=== PATIENT | female | born 1945 | race Caucasian/White ===

== ENCOUNTER → 2016-03-30 | Outpatient (CLI) | payer MEDICARE, BC ==
--- NOTE | 2016-03-30 16:46 | REPMRS ---
Patient History The patient states she had a clinical breast exam in 10/2015. Patient is postmenopausal. No known family history of cancer. Taking unspecified hormones for 16 years. Digital Woman Screen Mammo: March 30, 2016 - Exam #: [id number] Bilateral CC and MLO view(s) were taken. Technologist: Pilar Escobar, Technologist Prior study comparison: November 30, 2014, digital woman screen mammo performed at [facility]. April 08, 2013, digital woman screen mammo performed at [facility]. November 22, 2011, digital woman screen mammo performed at [facility]. FINDINGS: There are scattered fibroglandular densities. There has been no change in the appearance of the mammogram from the prior studies. There is a mild amount of scattered fibroglandular density which is fairly symmetric. There is no interval development of dominant mass, architectural distortion, or clustered microcalcification suggestive of malignancy. ASSESSMENT: BI-RADS/ACR category 1 mammogram. Negative. Recommendation Routine screening mammogram in 1 year (for women over age 40). This mammogram was interpreted with the aid of an FDA-approved computer-aided dectection system. Electronically Signed By: Abhinav Bee MD 03/30/16 2055
--- NOTE | 2016-04-04 09:01 | DEXA ---
AP SPINE L1 - L4 1.051 -1.1 0.5 LT FEMUR TOTAL 1.020 0.1 1.6 RT FEMUR TOTAL 1.028 0.2 1.7 TOTAL BODY TOTAL OTHER DUAL FEMUR FRAX* ASSESSMENT Risk factors: None. 10 year probability of fracture Major osteoporotic fracture 9.3 % Hip fracture 1.1 % COMMENTS: Normal bone densitometry of the hips. There is low bone density of the spine. The density of the spine has increased 18.9% since the initial exam on 09/1998. The spine density has increased 1.7% since the most recent exam on 11/2011. The density of the left hip has increased 4.2% since the initial exam on 09/1998. The density of the left hip has decreased 0.7% since the most recent exam on 2011. The density of the right hip has increased 7.8% since the initial exam on 1998. The density of the right hip has increased 0.9% since the most recent exam on 2011. FOLLOW-UP: Recommendation for the next bone density exam: 2 years. VIOLETA
== END ==
LOC: M WHC 15:35
PROVIDERS: ATTEND Nurse Practitioner
DX: Z12.31 Encounter for screening mammogram for malignant neoplasm of breast (principal); Z79.899 Other long term (current) drug therapy; Z13.820 Encounter for screening for osteoporosis; M81.0 Age-related osteoporosis without current pathological fracture; Z82.62 Family history of osteoporosis
CPT/HCPCS: 77080; G0202

== ENCOUNTER → 2016-05-24 | Outpatient (REF) | payer MEDICARE, OTHER ==
[2016-05-24 18:14] LABS: BASO % 0.8 % (0.0-1.0); EOS # 0.2 K/mm3 (0.0-0.50); EOS % 4.1 % (0.0-3.0); LARGE UNSTAINED CELL # 0.1 K/mm3 (0.0-0.4); LARGE UNSTAINED CELL % 0.9 % (0.0-4.0); LYMPH # 1.4 K/mm3 (1.5-4.5); LYMPH % 26.2 % (24.0-44.0); MEAN CORPUSCULAR HEMOGLOBIN 33.3 pg (27.0-33.0); MEAN CORPUSCULAR HGB CONC 34.6 g/dl (32.0-36.5); MEAN CORPUSCULAR VOLUME 96.1 fl (80.0-96.0); MONO # 0.4 K/mm3 (0.0-0.8); MONO % 7.2 % (0.0-5.0); NEUTROPHILS # 3.1 K/mm3 (1.8-7.7); NEUTROPHILS % 60.8 % (36.0-66.0); PLATELET COUNT, AUTOMATED 264 k/mm3 (150-450); RED CELL DISTRIBUTION WIDTH 12.7 % (11.5-14.5); WHITE BLOOD COUNT 5.1 K/mm3 (4.0-10.0)
[2016-05-24 18:35] LABS: ALBUMIN 3.6 GM/DL (3.2-5.2); ALBUMIN/GLOBULIN RATIO 1.13 (1.00-1.93); BILIRUBIN,TOTAL 0.7 MG/DL (0.2-1.0); CALCIUM LEVEL 8.7 MG/DL (8.8-10.2); CREATININE FOR GFR 1.06 MG/DL (0.55-1.02); GLOMERULAR FILTRATION RATE 54.2 (>39); POTASSIUM SERUM 3.7 MEQ/L (3.5-5.1); TOTAL PROTEIN 6.8 GM/DL (6.4-8.2)
== END ==
LOC: M SFHCCAPE 07:09
PROVIDERS: ATTEND Physician Assistant
DX: E78.5 Hyperlipidemia, unspecified (principal); I10 Essential (primary) hypertension

== ENCOUNTER → 2016-11-27 | Outpatient (REF) | payer MEDICARE, OTHER ==
[2016-11-27 17:52] LABS: ALBUMIN 3.8 GM/DL (3.2-5.2); ALBUMIN/GLOBULIN RATIO 1.12 (1.00-1.93); ALKALINE PHOSPHATASE 74 U/L (45-117); ALT/SGPT 41 U/L (12-78); ANION GAP 6 MEQ/L (8-16); AST/SGOT 20 U/L (15-37); BILIRUBIN,TOTAL 0.6 MG/DL (0.2-1.0); BLOOD UREA NITROGEN 20 MG/DL (7-18); CARBON DIOXIDE LEVEL 33 MEQ/L (21-32); CHLORIDE LEVEL 102 MEQ/L (98-107); CHOLESTEROL LEVEL 284 MG/DL (<200); CREATININE FOR GFR 0.95 MG/DL (0.55-1.02); FREE T4 0.86 NG/DL (0.76-1.46); GLOMERULAR FILTRATION RATE > 60.0 (>39); GLUCOSE, FASTING 114 MG/DL (83-110); POTASSIUM SERUM 3.7 MEQ/L (3.5-5.1); SODIUM LEVEL 141 MEQ/L (136-145); TOTAL PROTEIN 7.2 GM/DL (6.4-8.2); TRIGLYCERIDES LEVEL 227 MG/DL (<150)
[2016-11-27 18:10] LABS: BASO % 0.5 % (0.0-1.0); EOS # 0.3 K/mm3 (0.0-0.50); EOS % 5.1 % (0.0-3.0); LARGE UNSTAINED CELL # 0.1 K/mm3 (0.0-0.4); LARGE UNSTAINED CELL % 1.9 % (0.0-4.0); LYMPH % 34.7 % (24.0-44.0); MEAN CORPUSCULAR HEMOGLOBIN 32.1 pg (27.0-33.0); MEAN CORPUSCULAR HGB CONC 33.8 g/dl (32.0-36.5); MEAN CORPUSCULAR VOLUME 94.9 fl (80.0-96.0); MONO # 0.4 K/mm3 (0.0-0.8); MONO % 7.6 % (0.0-5.0); NEUTROPHILS # 2.7 K/mm3 (1.8-7.7); NEUTROPHILS % 50.3 % (36.0-66.0); PLATELET COUNT, AUTOMATED 268 k/mm3 (150-450); WHITE BLOOD COUNT 5.4 K/mm3 (4.0-10.0)
== END ==
LOC: M SFHCCAPE 07:28
PROVIDERS: ATTEND Physician Assistant
DX: I10 Essential (primary) hypertension (principal); M85.80 Other specified disorders of bone density and structure, unspecified site

== ENCOUNTER → 2017-02-20 | Outpatient (CLI) | payer MEDICARE, BC ==
--- NOTE | 2017-02-20 13:14 | REP ---
RIGHT KNEE: HISTORY: Pain. There is no acute fracture or dislocation There is narrowing of the medial knee joint space and patellofemoral joint space. Small osteophytes are present on the tibia and patella. IMPRESSION: Degenerative change as described above.
== END ==
LOC: M CLY 11:35
PROVIDERS: ATTEND Physician Assistant
DX: G89.29 Other chronic pain (principal); M25.561 Pain in right knee

== ENCOUNTER → 2017-03-29 | Outpatient (REF) | payer MEDICARE, OTHER ==
[2017-03-29 21:12] LABS: ALBUMIN 3.5 GM/DL (3.2-5.2); ALBUMIN/GLOBULIN RATIO 1.17 (1.00-1.93); ALKALINE PHOSPHATASE 72 U/L (45-117); ALT/SGPT 24 U/L (12-78); ANION GAP 6 MEQ/L (8-16); AST/SGOT 17 U/L (7-37); BILIRUBIN,TOTAL 0.5 MG/DL (0.2-1.0); BLOOD UREA NITROGEN 24 MG/DL (7-18); CALCIUM LEVEL 8.6 MG/DL (8.8-10.2); CARBON DIOXIDE LEVEL 32 MEQ/L (21-32); CHLORIDE LEVEL 106 MEQ/L (98-107); CHOLESTEROL LEVEL 273 MG/DL (<200); CHOLESTEROL RISK RATIO 4.875 (<5); CREATININE FOR GFR 0.83 MG/DL (0.55-1.02); GLOMERULAR FILTRATION RATE > 60.0 (>39); GLUCOSE, FASTING 82 MG/DL (83-110); HDL CHOLESTEROL 56 MG/DL (>40); LDL CHOLESTEROL 185.6 MG/DL (<100); NON-HDL-C 217 MG/DL; SODIUM LEVEL 144 MEQ/L (136-145); TOTAL PROTEIN 6.5 GM/DL (6.4-8.2); TRIGLYCERIDES LEVEL 157 MG/DL (<150)
[2017-03-29 21:41] LABS: ESTIMATED AVERAGE GLUCOSE 123 MG/DL (60-110); HEMOGLOBIN A1c 5.9 %
== END ==
LOC: M SFHCCAPE 07:02
DX: I10 Essential (primary) hypertension (principal); R73.01 Impaired fasting glucose; E78.5 Hyperlipidemia, unspecified
CPT/HCPCS: 80053

== ENCOUNTER → 2017-04-30 | Outpatient (CLI) | payer MEDICARE, BC, OTHER | LOC: M RAD 08:51 | DX: M17.11 Unilateral primary osteoarthritis, right knee (principal); M71.21 Synovial cyst of popliteal space [Baker], right knee; S83.231A Complex tear of medial meniscus, current injury, right knee, initial encounter; X58.XXXA Exposure to other specified factors, initial encounter; Y92.89 Other specified places as the place of occurrence of the external cause | CPT/HCPCS: 73721 ==

== ENCOUNTER → 2017-08-09 | Outpatient (CLI) | payer MEDICARE, BC, OTHER | LOC: M CLY 11:12 | DX: I10 Essential (primary) hypertension (principal) | CPT/HCPCS: 71046; 93005 ==

== ENCOUNTER → 2017-08-14 | Outpatient (REF) | payer MEDICARE, OTHER ==
[2017-08-14 19:05] LABS: ALBUMIN 3.5 GM/DL (3.2-5.2); ALBUMIN/GLOBULIN RATIO 1.13 (1.00-1.93); ALKALINE PHOSPHATASE 77 U/L (45-117); ALT/SGPT 35 U/L (12-78); ANION GAP 8 MEQ/L (8-16); AST/SGOT 25 U/L (7-37); BILIRUBIN,TOTAL 0.7 MG/DL (0.2-1.0); BLOOD UREA NITROGEN 14 MG/DL (7-18); CALCIUM LEVEL 8.3 MG/DL (8.8-10.2); CARBON DIOXIDE LEVEL 29 MEQ/L (21-32); CHLORIDE LEVEL 106 MEQ/L (98-107); CHOLESTEROL LEVEL 265 MG/DL (<200); CHOLESTEROL RISK RATIO 5.096 (<5); CREATININE FOR GFR 0.88 MG/DL (0.55-1.30); FREE T4 0.87 NG/DL (0.76-1.46); GLOMERULAR FILTRATION RATE > 60.0 (>39); GLUCOSE, FASTING 87 MG/DL (70-100); HDL CHOLESTEROL 52 MG/DL (>40); LDL CHOLESTEROL 178.4 MG/DL (<100); NON-HDL-C 213 MG/DL; POTASSIUM SERUM 3.4 MEQ/L (3.5-5.1); SODIUM LEVEL 143 MEQ/L (136-145); TOTAL PROTEIN 6.6 GM/DL (6.4-8.2); TRIGLYCERIDES LEVEL 173 MG/DL (<150)
[2017-08-14 19:18] LABS: ESTIMATED AVERAGE GLUCOSE 120 MG/DL (60-110); HEMOGLOBIN A1c 5.8 %
== END ==
LOC: M SFHCCAPE 07:48
DX: I10 Essential (primary) hypertension (principal)
CPT/HCPCS: 84443

== ENCOUNTER 2017-08-20 07:13 | Day surgery (SDC) | payer MEDICARE, BC, OTHER ==
[2017-08-20] MEDS: LR 1,000 ML IV (08:14)
[2017-08-20] MEDS ORDERED: MIDAZOLAM INJ 2 MG/2 ML VIAL (J2250) As Ordered (09:10)
[2017-08-20] MEDS ORDERED: PROPOFOL 200 MG/20 ML VIAL As Ordered (09:11)
[2017-08-20] MEDS ORDERED: LIDOCAINE 2% INJ 100 MG/5 ML SDV (FOR ANES.) As Ordered (09:11)
[2017-08-20] MEDS ORDERED: fentaNYL 100 MCG/2 ML INJECTION (J3010) As Ordered ×2 (09:17→10:30)
[2017-08-20] MEDS ORDERED: ePHEDrine SULFATE 25 MG/5 ML(5MG/ML) SYRINGE As Ordered (10:16)
[2017-08-20] MEDS ORDERED: PHENYLephrine HCL 500 MCG/5 ML (100MCG/ML) SYRINGE (J2370) As Ordered (10:18)
[2017-08-20] MEDS: BUPIVACAINE HCL 0.5% 30 ML VIAL As Ordered (10:45)
[2017-08-20] MEDS ORDERED: ONDANSETRON 4MG/2ML VIAL (J2405) As Ordered (11:29)
[2017-08-20] MEDS: ONDANSETRON 4MG/2ML VIAL (J2405) IV (11:29)
[2017-08-20] MEDS ORDERED: MEPERIDINE INJ 25 MG/ML VIAL (J2175) IV (11:30)
[2017-08-20] MEDS ORDERED: METOCLOPRAMIDE INJ 10MG/2ML VIAL (J2765) IV (11:30)
[2017-08-20] MEDS ORDERED: LR 1,000 ML IV (11:30)
[2017-08-20] MEDS ORDERED: fentaNYL 100 MCG/2 ML INJECTION (J3010) IV (11:30)
[2017-08-20] MEDS: PERCOCET 5MG/325MG TAB PO (12:20)
[2017-08-20] MEDS ORDERED: ONDANSETRON 4 MG ORAL DISINTEGRATING TAB (Q0162 PER 1MG) As Ordered (13:17)
[2017-08-20] MEDS: ONDANSETRON 4 MG ORAL DISINTEGRATING TAB (Q0162 PER 1MG) PO (13:27)
== END 2017-08-20 13:32 | disposition home or self-care (01) ==
LOC: M SDC 07:13
DX: S82.121A Displaced fracture of lateral condyle of right tibia, initial encounter for closed fracture (principal); S83.241A Other tear of medial meniscus, current injury, right knee, initial encounter; M17.11 Unilateral primary osteoarthritis, right knee; I10 Essential (primary) hypertension; Z88.2 Allergy status to sulfonamides; E78.5 Hyperlipidemia, unspecified; F41.9 Anxiety disorder, unspecified; F32.9 Major depressive disorder, single episode, unspecified; Z79.899 Other long term (current) drug therapy; Z91.048 Other nonmedicinal substance allergy status; Y93.9 Activity, unspecified; Y92.9 Unspecified place or not applicable
CPT/HCPCS: 29881

== ENCOUNTER → 2017-08-30 | Outpatient (CLI) | payer MEDICARE, BC | LOC: M WHC 15:11 | DX: Z12.31 Encounter for screening mammogram for malignant neoplasm of breast (principal); Z01.419 Encounter for gynecological examination (general) (routine) without abnormal findings (principal); N95.2 Postmenopausal atrophic vaginitis; Z78.0 Asymptomatic menopausal state; Z92.29 Personal history of other drug therapy; Z12.12 Encounter for screening for malignant neoplasm of rectum; Z79.890 Hormone replacement therapy | CPT/HCPCS: 77067 ==

== ENCOUNTER → 2017-09-24 | Outpatient (REF) | payer MEDICARE, OTHER ==
[2017-09-24 19:06] LABS: POTASSIUM SERUM 3.8 MEQ/L (3.5-5.1)
== END ==
LOC: M SFHCCAPE 09:05
DX: E87.6 Hypokalemia (principal)
CPT/HCPCS: 84132

== ENCOUNTER → 2018-02-26 | Outpatient (REF) | payer MEDICARE, OTHER ==
[~2018-02-26] MED LIST: AMIT50TA PO; BIMA01SOL OU; BRIM0.2S13 OU; ESTR1DIS3 TD; HYDR25TAB PO; PROG100C PO; TIMOLOL OU
[2018-02-26 18:07] LABS: ALBUMIN 3.3 GM/DL (3.2-5.2); ALT/SGPT 28 U/L (12-78); BILIRUBIN,TOTAL 0.6 MG/DL (0.2-1.0); BLOOD UREA NITROGEN 19 MG/DL (7-18); CALCIUM LEVEL 8.3 MG/DL (8.8-10.2); CARBON DIOXIDE LEVEL 34 MEQ/L (21-32); CHLORIDE LEVEL 105 MEQ/L (98-107); CHOLESTEROL LEVEL 280 MG/DL (<200); CHOLESTEROL RISK RATIO 5.714 (<5); CREATININE FOR GFR 0.94 MG/DL (0.55-1.30); GLOMERULAR FILTRATION RATE > 60.0 (>39); GLUCOSE, FASTING 83 MG/DL (70-100); HDL CHOLESTEROL 49 MG/DL (>40); LDL CHOLESTEROL 200 MG/DL (<100); NON-HDL-C 231 MG/DL; POTASSIUM SERUM 3.7 MEQ/L (3.5-5.1); SODIUM LEVEL 143 MEQ/L (136-145); TOTAL PROTEIN 6.4 GM/DL (6.4-8.2); TRIGLYCERIDES LEVEL 155 MG/DL (<150)
[2018-02-26 18:14] LABS: BASO % 0.7 % (0.0-1.0); EOS # 0.3 10^3/uL (0.0-0.50); EOS % 4.6 % (0.0-3.0); HEMATOCRIT 39.9 % (36.0-47.0); HEMOGLOBIN 13.8 g/dl (12.0-15.5); LYMPH # 2.1 10^3/uL (1.5-4.5); LYMPH % 35.8 % (24.0-44.0); MEAN CORPUSCULAR HEMOGLOBIN 32.2 pg (27.0-33.0); MEAN CORPUSCULAR HGB CONC 34.6 g/dl (32.0-36.5); MEAN CORPUSCULAR VOLUME 93.2 fl (80.0-96.0); MONO # 0.6 10^3/uL (0.0-0.8); NEUTROPHILS # 2.9 10^3/uL (1.8-7.7); NEUTROPHILS % 48.4 % (36.0-66.0); PLATELET COUNT, AUTOMATED 252 10^3/uL (150-450); RED BLOOD COUNT 4.28 10^6/uL (4.00-5.40); WHITE BLOOD COUNT 5.9 10^3/uL (4.0-10.0)
== END ==
LOC: M SFHCCAPE 07:34
PROVIDERS: ATTEND Physician Assistant
DX: I10 Essential (primary) hypertension (principal); E78.5 Hyperlipidemia, unspecified; R73.01 Impaired fasting glucose

== ENCOUNTER → 2018-03-04 | Outpatient (REF) | payer MEDICARE, OTHER ==
[2018-03-04 17:24] LABS: FREE T4 0.89 NG/DL (0.76-1.46); THYROID STIMULATING HORMONE 3.89 uIU/ML (0.358-3.740)
== END ==
LOC: M SFHCCAPE 10:44
PROVIDERS: ATTEND Physician Assistant
DX: R73.09 Other abnormal glucose (principal); R94.6 Abnormal results of thyroid function studies; Z23 Encounter for immunization
CPT/HCPCS: 36415; 84439; 84443; 90682; G0008; G0463

== ENCOUNTER → 2018-04-23 | Outpatient (REF) | payer MEDICARE, OTHER ==
[2018-04-23 18:49] LABS: FREE T4 0.92 NG/DL (0.76-1.46); THYROID STIMULATING HORMONE 3.82 uIU/ML (0.358-3.740)
== END ==
LOC: M SFHCCAPE 07:04
PROVIDERS: ATTEND Physician Assistant
DX: E03.9 Hypothyroidism, unspecified (principal)

== ENCOUNTER → 2018-09-02 | Outpatient (CLI) | payer MEDICARE, BC ==
--- NOTE | 2018-09-02 15:07 | REPMRS ---
Patient History The patient states she had a clinical breast exam in 08/2018. Patient is postmenopausal. No known family history of cancer. Taking unspecified hormones for 18 years. 3D TOMOSYNTHESIS WAS PERFORMED. The [facility] lifetime risk for breast cancer is 4,0%. Digital Woman Screen Mammo: September 02, 2018 - Exam #: [id number] Bilateral CC and MLO view(s) were taken. Technologist: Viky Phipps, Technologist Prior study comparison: August 30, 2017, bilateral digital woman screen mammo performed at [facility]. March 30, 2016, digital woman screen mammo performed at [facility]. FINDINGS: There are scattered fibroglandular densities. There has been no change in the appearance of the mammogram from the prior studies. There is a mild amount of residual fibroglandular tissue which is fairly symmetric. There is no interval development of dominant mass, architectural distortion, or clustered microcalcification suggestive of malignancy. Assessment: BI-RADS/ACR category 1 mammogram. Negative Mammogram. Recommendation Routine screening mammogram in 1 year (for women over age 40). This mammogram was interpreted with the aid of an FDA-approved computer-aided dectection system. Electronically Signed By: Mike Noriega MD 09/02/18 [id number]
== END ==
LOC: M WHC 13:54
PROVIDERS: ATTEND Nurse Practitioner Family
DX: Z01.419 Encounter for gynecological examination (general) (routine) without abnormal findings (principal); Z12.31 Encounter for screening mammogram for malignant neoplasm of breast; Z78.0 Asymptomatic menopausal state; Z92.29 Personal history of other drug therapy
CPT/HCPCS: 77063; 77067; G0101

== ENCOUNTER → 2018-11-13 | Outpatient (REF) | payer MEDICARE, OTHER ==
[~2018-11-13] MED LIST changes: -PROG100C PO; +PROG1CAP8 PO
[2018-11-13 16:45] LABS: ALBUMIN 3.4 GM/DL (3.2-5.2); BILIRUBIN,TOTAL 0.5 MG/DL (0.2-1.0); CALCIUM LEVEL 8.6 MG/DL (8.8-10.2); CHOLESTEROL RISK RATIO 5.422 (<5); CREATININE FOR GFR 1.03 MG/DL (0.55-1.30); FREE T4 0.91 NG/DL (0.76-1.46); GLOMERULAR FILTRATION RATE 55.8 (>39); POTASSIUM SERUM 3.7 MEQ/L (3.5-5.1); THYROID STIMULATING HORMONE 1.83 uIU/ML (0.358-3.740); TOTAL PROTEIN 6.3 GM/DL (6.4-8.2)
[2018-11-13 17:20] LABS: HEMOGLOBIN A1c 5.6 %
== END ==
LOC: M SFHCCAPE 07:44
PROVIDERS: ATTEND Physician Assistant
DX: R73.09 Other abnormal glucose (principal); R94.6 Abnormal results of thyroid function studies; E78.5 Hyperlipidemia, unspecified

== ENCOUNTER → 2019-03-04 | Outpatient (REF) | payer MEDICARE, OTHER ==
[2019-03-04 17:04] LABS: ALBUMIN 3.5 GM/DL (3.2-5.2); BILIRUBIN,TOTAL 0.5 MG/DL (0.2-1.0); CALCIUM LEVEL 9.1 MG/DL (8.8-10.2); CHOLESTEROL RISK RATIO 5.25 (<5); CREATININE FOR GFR 1.07 MG/DL (0.55-1.30); FREE T4 0.97 NG/DL (0.76-1.46); GLOMERULAR FILTRATION RATE 53.2 (>39); POTASSIUM SERUM 3.1 MEQ/L (3.5-5.1); THYROID STIMULATING HORMONE 3.28 uIU/ML (0.358-3.740); TOTAL PROTEIN 6.8 GM/DL (6.4-8.2)
[2019-03-04 21:10] LABS: HEMOGLOBIN A1c 5.8 %
== END ==
LOC: M SFHCCAPE 07:03
PROVIDERS: ATTEND Physician Assistant
DX: I10 Essential (primary) hypertension (principal); E03.9 Hypothyroidism, unspecified; R73.09 Other abnormal glucose; E78.5 Hyperlipidemia, unspecified

== ENCOUNTER → 2019-03-13 | Outpatient (REF) | payer MEDICARE, OTHER ==
[2019-03-13 19:24] LABS: ALBUMIN 3.2 GM/DL (3.2-5.2); ALT/SGPT 20 U/L (12-78); BILIRUBIN,TOTAL 0.9 MG/DL (0.2-1.0); BLOOD UREA NITROGEN 20 MG/DL (7-18); CALCIUM LEVEL 8.4 MG/DL (8.8-10.2); CARBON DIOXIDE LEVEL 30 MEQ/L (21-32); CHLORIDE LEVEL 103 MEQ/L (98-107); CREATININE FOR GFR 0.95 MG/DL (0.55-1.30); GLOMERULAR FILTRATION RATE > 60.0 (>39); GLUCOSE, FASTING 133 MG/DL (70-100); POTASSIUM SERUM 3.7 MEQ/L (3.5-5.1); SODIUM LEVEL 140 MEQ/L (136-145); TOTAL PROTEIN 6.5 GM/DL (6.4-8.2)
== END ==
LOC: M SFHCCAPE 10:19
PROVIDERS: ATTEND Physician Assistant
DX: E87.6 Hypokalemia (principal)

== ENCOUNTER → 2019-06-10 | Outpatient (REF) | payer MEDICARE, OTHER ==
[2019-06-10 11:30] LABS: BASO # 0.1 10^3/uL (0.0-0.2); BASO % 0.9 % (0.0-1.0); EOS # 0.3 10^3/uL (0.0-0.5); EOS % 4.8 % (0.0-3.0); HEMATOCRIT 43.3 % (36.0-47.0); HEMOGLOBIN 14.6 g/dl (12.0-15.5); LYMPH # 2.2 10^3/uL (1.5-5.0); LYMPH % 33.8 % (24.0-44.0); MEAN CORPUSCULAR HEMOGLOBIN 31.9 pg (27.0-33.0); MEAN CORPUSCULAR HGB CONC 33.7 g/dl (32.0-36.5); MEAN CORPUSCULAR VOLUME 94.7 fl (80.0-96.0); MONO # 0.8 10^3/uL (0.0-0.8); MONO % 11.5 % (0.0-5.0); NEUTROPHILS # 3.2 10^3/uL (1.5-8.5); NEUTROPHILS % 48.7 % (36.0-66.0); PLATELET COUNT, AUTOMATED 248 10^3/uL (150-450); RED BLOOD COUNT 4.57 10^6/uL (4.00-5.40); WHITE BLOOD COUNT 6.6 10^3/uL (4.0-10.0)
[2019-06-10 11:31] LABS: ALBUMIN 3.6 GM/DL (3.2-5.2); ALT/SGPT 21 U/L (12-78); BILIRUBIN,TOTAL 0.4 MG/DL (0.2-1.0); BLOOD UREA NITROGEN 18 MG/DL (7-18); CALCIUM LEVEL 9.2 MG/DL (8.8-10.2); CARBON DIOXIDE LEVEL 34 MEQ/L (21-32); CHLORIDE LEVEL 103 MEQ/L (98-107); CHOLESTEROL LEVEL 260 MG/DL (<200); CREATININE FOR GFR 0.89 MG/DL (0.55-1.30); FREE T4 1.01 NG/DL (0.76-1.46); GLOMERULAR FILTRATION RATE > 60.0 (>39); GLUCOSE, FASTING 92 MG/DL (70-100); HDL CHOLESTEROL 50 MG/DL (>40); LDL CHOLESTEROL 162 MG/DL (<100); NON-HDL-C 210 MG/DL; POTASSIUM SERUM 3.5 MEQ/L (3.5-5.1); SODIUM LEVEL 142 MEQ/L (136-145); TOTAL PROTEIN 6.9 GM/DL (6.4-8.2); TRIGLYCERIDES LEVEL 240 MG/DL (<150)
[2019-06-10 12:38] LABS: HEMOGLOBIN A1c 5.6 %
== END ==
LOC: M SFHCCLAY 06:58
PROVIDERS: ATTEND Physician Assistant
DX: E03.9 Hypothyroidism, unspecified (principal); I10 Essential (primary) hypertension; R73.09 Other abnormal glucose; E78.5 Hyperlipidemia, unspecified

== ENCOUNTER → 2019-09-04 | Outpatient (CLI) | payer MEDICARE, BC ==
--- NOTE | 2019-09-05 11:03 | REPMRS ---
Patient History The patient states she had a clinical breast exam in August 2019. No known family history of cancer. Taking unspecified hormones for 18 years. Digital Woman Screen Mammo: September 04, 2019 - Exam #: [id number] Bilateral CC and MLO view(s) were taken. Technologist: Rena Lu, Technologist Prior study comparison: September 02, 2018, bilateral digital woman screen mammo performed at [facility]. August 30, 2017, bilateral digital woman screen mammo performed at [facility]. March 30, 2016, digital woman screen mammo performed at [facility]. FINDINGS: There are scattered fibroglandular densities. The Volpara volumetric breast density category is:B. There has been no change in the appearance of the mammogram from the prior studies. There is a mild amount of scattered fibroglandular density which is fairly symmetric. There is no interval development of dominant mass, architectural distortion, or grouped microcalcification suggestive of malignancy. 3-D tomosynthesis shows no additional findings. Assessment: BI-RADS/ACR category 1 mammogram. Negative Mammogram. Recommendation Routine screening mammogram of both breasts in 1 year (for women over age 40). This patient's Lifetime Breast Cancer Risk is estimated at 3.7 %. This mammogram was interpreted with the aid of an FDA-approved computer-aided dectection system. Electronically Signed By: Abhinav Bee MD 09/05/19 [id number]
== END ==
LOC: M WHC 13:29
PROVIDERS: ATTEND Nurse Practitioner Family
DX: Z12.31 Encounter for screening mammogram for malignant neoplasm of breast (principal); Z92.29 Personal history of other drug therapy
CPT/HCPCS: 77063; 77067; G0101

== ENCOUNTER → 2019-11-06 | Outpatient (REF) | payer MEDICARE, OTHER ==
[2019-11-06 15:08] LABS: BASO % 0.7 % (0.0-1.0); EOS # 0.4 10^3/uL (0.0-0.5); EOS % 7.1 % (0.0-3.0); HEMATOCRIT 43.6 % (36.0-47.0); HEMOGLOBIN 14.7 g/dl (12.0-15.5); LYMPH # 1.9 10^3/uL (1.5-5.0); LYMPH % 32.6 % (24.0-44.0); MEAN CORPUSCULAR HEMOGLOBIN 31.6 pg (27.0-33.0); MEAN CORPUSCULAR HGB CONC 33.7 g/dl (32.0-36.5); MEAN CORPUSCULAR VOLUME 93.8 fl (80.0-96.0); MONO # 0.6 10^3/uL (0.0-0.8); MONO % 9.8 % (0.0-5.0); NEUTROPHILS # 2.8 10^3/uL (1.5-8.5); NEUTROPHILS % 48.8 % (36.0-66.0); PLATELET COUNT, AUTOMATED 237 10^3/uL (150-450); RED BLOOD COUNT 4.65 10^6/uL (4.00-5.40); WHITE BLOOD COUNT 5.8 10^3/uL (4.0-10.0)
[2019-11-06 15:29] LABS: ALBUMIN 3.5 GM/DL (3.2-5.2); BILIRUBIN,TOTAL 0.6 MG/DL (0.2-1.0); CALCIUM LEVEL 9.1 MG/DL (8.8-10.2); CHOLESTEROL RISK RATIO 5.666 (<5); CREATININE FOR GFR 0.97 MG/DL (0.55-1.30); FREE T4 0.98 NG/DL (0.76-1.46); GLOMERULAR FILTRATION RATE 59.6 (>39); POTASSIUM SERUM 3.5 MEQ/L (3.5-5.1); THYROID STIMULATING HORMONE 1.89 uIU/ML (0.358-3.740)
[2019-11-06 16:07] LABS: TOTAL 25(OH) VITAMIN D 31.6 NG/ML (30.0-100.0)
[2019-11-06 20:56] LABS: HEMOGLOBIN A1c 5.6 %
== END ==
LOC: M LABDRAWC 12:57
PROVIDERS: ATTEND Physician Assistant
DX: M85.80 Other specified disorders of bone density and structure, unspecified site (principal); I10 Essential (primary) hypertension; E78.5 Hyperlipidemia, unspecified; E03.9 Hypothyroidism, unspecified; F32.9 Major depressive disorder, single episode, unspecified

== ENCOUNTER → 2019-11-10 | Outpatient (CLI) | payer MEDICARE, OTHER ==
--- NOTE | 2019-12-12 13:32 | REP ---
TWO VIEW CHEST COMPARISON: 08/09/2017. REASON FOR EXAM: Rales. FINDINGS: The cardiomediastinal silhouette is unchanged. The heart is not enlarged. The lung christine are again seen to be clear. No acute patchy parenchymal opacities or pleural effusions have developed. The osseous structures are stable and intact. IMPRESSION: No acute chest pain disease. MTDD
== END ==
LOC: M CLY 09:55
PROVIDERS: ATTEND Physician Assistant
DX: R09.89 Other specified symptoms and signs involving the circulatory and respiratory systems (principal)
CPT/HCPCS: 71046; G0463

== ENCOUNTER → 2020-05-03 | Outpatient (REF) | payer MEDICARE, OTHER ==
[~2020-05-03] MED LIST changes: +HYDR-3490 PO; -HYDR25TAB PO
[2020-05-03 12:41] LABS: BASO # 0.1 10^3/uL (0.0-0.2); BASO % 1.1 % (0.0-1.0); EOS # 0.3 10^3/uL (0.0-0.5); HEMATOCRIT 41.9 % (36.0-47.0); HEMOGLOBIN 14.5 g/dl (12.0-15.5); LYMPH # 2.4 10^3/uL (1.5-5.0); LYMPH % 35.5 % (24.0-44.0); MEAN CORPUSCULAR HEMOGLOBIN 32.2 pg (27.0-33.0); MEAN CORPUSCULAR HGB CONC 34.6 g/dl (32.0-36.5); MEAN CORPUSCULAR VOLUME 93.1 fl (80.0-96.0); MONO # 0.7 10^3/uL (0.0-0.8); MONO % 9.8 % (0.0-8.0); NEUTROPHILS # 3.2 10^3/uL (1.5-8.5); NEUTROPHILS % 47.8 % (36.0-66.0); PLATELET COUNT, AUTOMATED 272 10^3/uL (150-450); WHITE BLOOD COUNT 6.6 10^3/uL (4.0-10.0)
[2020-05-03 12:45] LABS: APPEARANCE, URINE HAZY (CLEAR); BACTERIA, URINE AUTO NEGATIVE (NEGATIVE); BILIRUBIN, URINE AUTO NEGATIVE (NEGATIVE); BLOOD, URINE BLOOD 1+ (NEGATIVE); COLOR, URINE YELLOW (YELLOW); GLUCOSE, URINE (UA) AUTO NEGATIVE (NEGATIVE); KETONE, URINE AUTO NEGATIVE (NEGATIVE); LEUKOCYTE ESTERASE, URINE AUTO 3+ (NEGATIVE); NITRITE, URINE AUTO NEGATIVE (NEGATIVE); PROTEIN, URINE AUTO NEGATIVE (NEGATIVE); RBC, URINE AUTO 1 /HPF (0-3); SPECIFIC GRAVITY URINE AUTO 1.008 (1.002-1.035); SQUAMOUS EPITHELIAL CELL UR AU 5 /HPF (0-6); UROBILINOGEN, URINE AUTO 0.2 mg/dL (0.0-2.0); WBC, URINE AUTO 26 /HPF (0-3)
[2020-05-03 13:22] LABS: ALBUMIN 3.4 GM/DL (3.2-5.2); ALT/SGPT 38 U/L (12-78); BILIRUBIN,TOTAL 0.7 MG/DL (0.2-1.0); BLOOD UREA NITROGEN 13 MG/DL (7-18); CARBON DIOXIDE LEVEL 32 MEQ/L (21-32); CHLORIDE LEVEL 102 MEQ/L (98-107); CHOLESTEROL LEVEL 276 MG/DL (<200); CHOLESTEROL RISK RATIO 6.272 (<5); CREATININE FOR GFR 0.93 MG/DL (0.55-1.30); FREE T4 0.93 NG/DL (0.76-1.46); GLOMERULAR FILTRATION RATE > 60.0 (>39); GLUCOSE, FASTING 103 MG/DL (70-100); HDL CHOLESTEROL 44 MG/DL (>40); LDL CHOLESTEROL 181 MG/DL (<100); NON-HDL-C 232 MG/DL; POTASSIUM SERUM 3.6 MEQ/L (3.5-5.1); SODIUM LEVEL 140 MEQ/L (136-145); TOTAL PROTEIN 6.7 GM/DL (6.4-8.2); TRIGLYCERIDES LEVEL 253 MG/DL (<150)
[2020-05-03 13:36] LABS: HEMOGLOBIN A1c 5.6 %
== END ==
LOC: M SFHCCLAY 08:54
PROVIDERS: ATTEND Physician Assistant
DX: E03.9 Hypothyroidism, unspecified (principal); I10 Essential (primary) hypertension; R73.09 Other abnormal glucose

== ENCOUNTER → 2020-10-20 | Outpatient (CLI) | payer MEDICARE, OTHER ==
--- NOTE | 2020-10-20 12:30 | REPMRS ---
Patient History The patient states she had a clinical breast exam in October 2020. Patient is postmenopausal. No known family history of cancer. Taking unspecified hormones for 19 years. Patient states no breast complaints today. Patient has signed MRS History Sheet. Digital Woman Screen Mammo: October 20, 2020 - Exam #: [id number] Bilateral CC and MLO view(s) were taken. Technologist: Viky Phipps, Technologist Prior study comparison: September 04, 2019, bilateral digital woman screen mammo performed at [facility]. September 02, 2018, bilateral digital woman screen mammo performed at [facility]. FINDINGS: There are scattered fibroglandular densities. Screening. Digital screening (2D) mammography was performed bilaterally in the CC and MLO projections. Additionally, breast tomosynthesis (3D mammography) was performed bilaterally in the CC and MLO projections. Todays exam was compared to the prior exam/exams. By history, the patient has no complaints of a palpable breast abnormality or other significant breast complaints. The breasts are unchanged in size and shape. There are no louis-soft tissue densities or spiculated masses. There is no internal architectural distortion. The Volpara volumetric breast density category is B, there are scattered areas of fibroglandular densities.There are no suspicious louis-calcific clusters. Skin thickening or nipple retraction is not present. IMPRESSION: The Volpara volumetric breast density category is B, there are scattered areas of fibroglandular densities. BI-RADS Category 2- Benign Findings. There is no evidence of malignant alteration of the breasts. Followup examination recommended in one year. The lifetime Tyrer-Cuzick score is 3.3 % This mammogram was [facility] FDA approved computer aided detection system for mammography. Negative x-ray reports should not delay surgical consultation if a dominant or clinically suspicious mass is present. Not all breast cancers can be identified by mammography. Therefore, we recommend that you continue to perform regular breast self-examination and physical examination and then promptly contact your physician of any concerns or changes. Adenosis and dense breasts may obscure an underlying neoplasm. Assessment: BI-RADS/ACR category 2 mammogram. Benign Findings. Recommendation Routine screening mammogram of both breasts in 1 year. Electronically Signed By: Claudio Spaulding DO 10/20/20 4400
== END ==
LOC: M WHC 11:14
PROVIDERS: ATTEND Nurse Practitioner Women's Health
DX: Z01.419 Encounter for gynecological examination (general) (routine) without abnormal findings (principal); Z12.31 Encounter for screening mammogram for malignant neoplasm of breast; Z78.0 Asymptomatic menopausal state; Z92.29 Personal history of other drug therapy
CPT/HCPCS: 77063; 77067; G0101

== ENCOUNTER → 2020-11-02 | Outpatient (REF) | payer MEDICARE, OTHER ==
[2020-11-02 16:27] LABS: BASO # 0.1 10^3/uL (0.0-0.2); BASO % 1.1 % (0.0-1.0); EOS # 0.4 10^3/uL (0.0-0.5); EOS % 5.6 % (0.0-3.0); HEMATOCRIT 41.3 % (36.0-47.0); HEMOGLOBIN 13.9 g/dl (12.0-15.5); LYMPH % 30.3 % (24.0-44.0); MEAN CORPUSCULAR HEMOGLOBIN 31.2 pg (27.0-33.0); MEAN CORPUSCULAR HGB CONC 33.7 g/dl (32.0-36.5); MEAN CORPUSCULAR VOLUME 92.6 fl (80.0-96.0); MONO # 0.7 10^3/uL (0.0-0.8); MONO % 10.4 % (2.0-8.0); NEUTROPHILS # 3.4 10^3/uL (1.5-8.5); NEUTROPHILS % 52.1 % (36.0-66.0); PLATELET COUNT, AUTOMATED 257 10^3/uL (150-450); RED BLOOD COUNT 4.46 10^6/uL (4.00-5.40); WHITE BLOOD COUNT 6.6 10^3/uL (4.0-10.0)
[2020-11-02 16:47] LABS: ALBUMIN 3.4 GM/DL (3.2-5.2); ALT/SGPT 43 U/L (12-78); BILIRUBIN,TOTAL 0.6 MG/DL (0.2-1.0); BLOOD UREA NITROGEN 22 MG/DL (7-18); CALCIUM LEVEL 8.9 MG/DL (8.8-10.2); CARBON DIOXIDE LEVEL 31 MEQ/L (21-32); CHLORIDE LEVEL 106 MEQ/L (98-107); CHOLESTEROL LEVEL 261 MG/DL (<200); CHOLESTEROL RISK RATIO 5.437 (<5); FREE T4 0.83 NG/DL (0.76-1.46); GLOMERULAR FILTRATION RATE > 60.0 (>39); GLUCOSE, FASTING 108 MG/DL (70-100); HDL CHOLESTEROL 48 MG/DL (>40); LDL CHOLESTEROL 169 MG/DL (<100); NON-HDL-C 213 MG/DL; POTASSIUM SERUM 3.5 MEQ/L (3.5-5.1); SODIUM LEVEL 141 MEQ/L (136-145); TOTAL PROTEIN 6.5 GM/DL (6.4-8.2); TRIGLYCERIDES LEVEL 222 MG/DL (<150)
[2020-11-02 16:48] LABS: TOTAL 25(OH) VITAMIN D 37.7 NG/ML (30.0-100.0)
[2020-11-02 17:02] LABS: HEMOGLOBIN A1c 5.8 %
== END ==
LOC: M SFHCCAPE 09:09
PROVIDERS: ATTEND Physician Assistant
DX: E03.9 Hypothyroidism, unspecified (principal); I10 Essential (primary) hypertension; R73.09 Other abnormal glucose; M85.80 Other specified disorders of bone density and structure, unspecified site

== ENCOUNTER → 2021-06-02 | Outpatient (REF) | payer MEDICARE, OTHER ==
[~2021-06-02] MED LIST changes: +EUTH50TA; +FLUV20CA2 PO; +LISI2.5T9; +POTA-151
[2021-06-02 17:03] LABS: BASO # 0.1 10^3/uL (0.0-0.2); BASO % 0.8 % (0.0-1.0); EOS # 0.3 10^3/uL (0.0-0.5); HEMATOCRIT 40.6 % (36.0-47.0); HEMOGLOBIN 13.7 g/dl (12.0-15.5); LYMPH # 2.4 10^3/uL (1.5-5.0); LYMPH % 39.1 % (24.0-44.0); MEAN CORPUSCULAR HEMOGLOBIN 31.6 pg (27.0-33.0); MEAN CORPUSCULAR HGB CONC 33.7 g/dl (32.0-36.5); MEAN CORPUSCULAR VOLUME 93.8 fl (80.0-96.0); MONO # 0.7 10^3/uL (0.0-0.8); MONO % 10.8 % (2.0-8.0); NEUTROPHILS # 2.7 10^3/uL (1.5-8.5); NEUTROPHILS % 43.8 % (36.0-66.0); PLATELET COUNT, AUTOMATED 253 10^3/uL (150-450); RED BLOOD COUNT 4.33 10^6/uL (4.00-5.40); WHITE BLOOD COUNT 6.2 10^3/uL (4.0-10.0)
[2021-06-02 17:28] LABS: ALBUMIN 3.5 GM/DL (3.2-5.2); ALT/SGPT 46 U/L (12-78); BILIRUBIN,TOTAL 0.6 MG/DL (0.2-1.0); BLOOD UREA NITROGEN 21 MG/DL (7-18); CALCIUM LEVEL 9.4 MG/DL (8.8-10.2); CARBON DIOXIDE LEVEL 35 MEQ/L (21-32); CHLORIDE LEVEL 103 MEQ/L (98-107); CHOLESTEROL LEVEL 276 MG/DL (<200); CHOLESTEROL RISK RATIO 6.418 (<5); CREATININE FOR GFR 0.91 MG/DL (0.55-1.30); GLOMERULAR FILTRATION RATE > 60.0 (>39); GLUCOSE, FASTING 101 MG/DL (70-100); HDL CHOLESTEROL 43 MG/DL (>40); LDL CHOLESTEROL 179 MG/DL (<100); NON-HDL-C 233 MG/DL; POTASSIUM SERUM 3.8 MEQ/L (3.5-5.1); SODIUM LEVEL 142 MEQ/L (136-145); TOTAL 25(OH) VITAMIN D 48.8 NG/ML (30.0-100.0); TOTAL PROTEIN 6.6 GM/DL (6.4-8.2); TRIGLYCERIDES LEVEL 269 MG/DL (<150)
[2021-06-02 18:38] LABS: HEMOGLOBIN A1c 6.4 %
== END ==
LOC: M SFHCCAPE 08:50
PROVIDERS: ATTEND Physician Assistant
DX: E78.5 Hyperlipidemia, unspecified (principal); I10 Essential (primary) hypertension; E03.9 Hypothyroidism, unspecified; Z79.899 Other long term (current) drug therapy

== ENCOUNTER 2021-06-30 13:26 | Emergency (ER) | payer MEDICARE, BC, OTHER ==
[~2021-06-30] VITALS: Ht 162.6 cm; Wt 78.4 kg
[~2021-06-30 13:26] MED LIST changes: -EUTH50TA; -FLUV20CA2 PO; -LISI2.5T9; -POTA-151
[2021-06-30] MEDS ORDERED: EUTH50TA (13:49)
[2021-06-30] MEDS ORDERED: POTA-151 (13:49)
[2021-06-30] MEDS ORDERED: LISI2.5T9 (13:49)
[2021-06-30] MEDS ORDERED: FLUV20CA2 PO (13:49)
[2021-06-30 20:53] LABS: BASO # 0.1 10^3/uL (0.0-0.2); BASO % 0.9 % (0.0-1.0); EOS # 0.2 10^3/uL (0.0-0.5); EOS % 4.2 % (0.0-3.0); HEMATOCRIT 42.2 % (36.0-47.0); HEMOGLOBIN 14.4 g/dl (12.0-15.5); LYMPH % 35.3 % (24.0-44.0); MEAN CORPUSCULAR HEMOGLOBIN 31.8 pg (27.0-33.0); MEAN CORPUSCULAR HGB CONC 34.1 g/dl (32.0-36.5); MEAN CORPUSCULAR VOLUME 93.2 fl (80.0-96.0); MONO # 0.6 10^3/uL (0.0-0.8); MONO % 9.6 % (2.0-8.0); NEUTROPHILS # 2.9 10^3/uL (1.5-8.5); NEUTROPHILS % 49.5 % (36.0-66.0); PLATELET COUNT, AUTOMATED 270 10^3/uL (150-450); RED BLOOD COUNT 4.53 10^6/uL (4.00-5.40); WHITE BLOOD COUNT 5.8 10^3/uL (4.0-10.0)
[2021-06-30 21:03] LABS: CK-MB VALUE MASS 2.4 NG/ML (<3.6); MB/CK RELATIVE INDEX 1.62 (< OR =4)
[2021-06-30 21:04] LABS: INR 0.9; PROTHROMBIN TIME 12.6 SECONDS (12.7-14.5)
[2021-06-30 21:05] LABS: PARTIAL THROMBOPLASTIN TIME 29.2 SECONDS (25.9-37.0)
[2021-06-30 21:10] LABS: ALBUMIN 3.7 GM/DL (3.2-5.2); BILIRUBIN,DIRECT 0.1 MG/DL (0.0-0.2); BILIRUBIN,TOTAL 0.6 MG/DL (0.2-1.0); FREE T4 0.83 NG/DL (0.76-1.46); THYROID STIMULATING HORMONE 2.88 uIU/ML (0.358-3.740); TOTAL PROTEIN 7.2 GM/DL (6.4-8.2)
[2021-06-30 22:11] VITALS: BP 166/88
== END 2021-06-30 22:13 | disposition home or self-care (01) ==
LOC: M ED 13:26
DX: I16.9 Hypertensive crisis, unspecified (principal); M62.830 Muscle spasm of back; M43.16 Spondylolisthesis, lumbar region; M51.36 Other intervertebral disc degeneration, lumbar region; R90.82 White matter disease, unspecified; E78.5 Hyperlipidemia, unspecified; E03.9 Hypothyroidism, unspecified; M81.0 Age-related osteoporosis without current pathological fracture; J30.89 Other allergic rhinitis; J30.1 Allergic rhinitis due to pollen; F32.9 Major depressive disorder, single episode, unspecified; F41.9 Anxiety disorder, unspecified; Z79.899 Other long term (current) drug therapy; Z88.2 Allergy status to sulfonamides

== ENCOUNTER → 2021-07-13 | Outpatient (CLI) | payer MEDICARE, BC, OTHER ==
[~2021-07-13] MED LIST changes: +EUTH50TA; +FLUV20CA2 PO; +LISI2.5T9; +POTA-151
== END ==
LOC: M PLAIMG 10:58
PROVIDERS: ATTEND Physician Assistant
DX: R93.89 Abnormal findings on diagnostic imaging of other specified body structures (principal)

== ENCOUNTER → 2021-09-13 | Outpatient (REF) | payer MEDICARE, OTHER ==
[2021-09-13 16:48] LABS: FREE THYROXINE INDEX 2.9 % (1.3-4.8); THYROID STIMULATING HORMONE 1.43 uIU/ML (0.358-3.740); THYROXINE (T4) 8.5 UG/DL (4.5-12.0)
[2021-09-22 09:13] LABS: VITAMIN B1 LEVEL WHOLE BLOOD 142.4 nmol/L (66.5-200.0); VITAMIN B6,PYRIDOXAL PHOSPHATE 5.7 ug/L (3.4-65.2); VITAMIN E(ALPHA TOCOPHEROL) 20.1 mg/L (9.0-29.0); VITAMIN E(GAMMA TOCOPHEROL) 0.8 mg/L (0.5-4.9)
== END ==
LOC: M LABDRWCV 15:43
PROVIDERS: ATTEND Psychiatry & Neurology Neurology
DX: E03.9 Hypothyroidism, unspecified (principal); R41.3 Other amnesia; E53.8 Deficiency of other specified B group vitamins; E51.9 Thiamine deficiency, unspecified; I10 Essential (primary) hypertension; Z79.899 Other long term (current) drug therapy

== ENCOUNTER → 2021-09-13 | Outpatient (REF) | payer MEDICARE, OTHER ==
[2021-09-13 16:40] LABS: ALBUMIN 3.5 GM/DL (3.2-5.2); ALT/SGPT 35 U/L (12-78); BILIRUBIN,TOTAL 0.6 MG/DL (0.2-1.0); BLOOD UREA NITROGEN 23 MG/DL (7-18); CALCIUM LEVEL 9.4 MG/DL (8.8-10.2); CARBON DIOXIDE LEVEL 28 MEQ/L (21-32); CHLORIDE LEVEL 109 MEQ/L (98-107); CHOLESTEROL LEVEL 295 MG/DL (<200); CHOLESTEROL RISK RATIO 6.145 (<5); CREATININE FOR GFR 0.89 MG/DL (0.55-1.30); GLOMERULAR FILTRATION RATE > 60.0 (>39); GLUCOSE, FASTING 108 MG/DL (70-100); HDL CHOLESTEROL 48 MG/DL (>40); LDL CHOLESTEROL 203 MG/DL (<100); NON-HDL-C 247 MG/DL; POTASSIUM SERUM 4.1 MEQ/L (3.5-5.1); SODIUM LEVEL 144 MEQ/L (136-145); TOTAL PROTEIN 6.5 GM/DL (6.4-8.2); TRIGLYCERIDES LEVEL 219 MG/DL (<150)
[2021-09-13 17:54] LABS: HEMOGLOBIN A1c 5.9 %
== END ==
LOC: M SFHCCAPE 09:02
PROVIDERS: ATTEND Physician Assistant
DX: I10 Essential (primary) hypertension (principal); Z79.899 Other long term (current) drug therapy

== ENCOUNTER → 2022-01-05 | Outpatient (REF) | payer MEDICARE, OTHER ==
[2022-01-05 18:15] LABS: ALBUMIN 3.6 GM/DL (3.2-5.2); ALT/SGPT 53 U/L (12-78); BILIRUBIN,TOTAL 0.7 MG/DL (0.2-1.0); BLOOD UREA NITROGEN 16 MG/DL (7-18); CALCIUM LEVEL 9.3 MG/DL (8.8-10.2); CARBON DIOXIDE LEVEL 30 MEQ/L (21-32); CHLORIDE LEVEL 104 MEQ/L (98-107); CHOLESTEROL LEVEL 296 MG/DL (<200); CREATININE FOR GFR 0.89 MG/DL (0.55-1.30); GLOMERULAR FILTRATION RATE > 60.0 (>39); GLUCOSE, FASTING 129 MG/DL (70-100); HDL CHOLESTEROL 49 MG/DL (>40); LDL CHOLESTEROL 207 MG/DL (<100); NON-HDL-C 247 MG/DL; POTASSIUM SERUM 3.6 MEQ/L (3.5-5.1); SODIUM LEVEL 141 MEQ/L (136-145); TOTAL PROTEIN 6.9 GM/DL (6.4-8.2); TRIGLYCERIDES LEVEL 198 MG/DL (<150)
== END ==
LOC: M SFHCCAPE 09:47
PROVIDERS: ATTEND Physician Assistant
DX: I10 Essential (primary) hypertension (principal)

== ENCOUNTER → 2022-01-13 | Outpatient (CLI) | payer MEDICARE, OTHER | LOC: M PLAIMG 12:32 | PROVIDERS: ATTEND Physician Assistant | DX: R93.89 Abnormal findings on diagnostic imaging of other specified body structures (principal); J84.10 Pulmonary fibrosis, unspecified; J47.9 Bronchiectasis, uncomplicated ==

== ENCOUNTER → 2022-06-21 | Outpatient (REF) | payer MEDICARE, OTHER ==
[2022-06-21 17:55] LABS: BASO # 0.1 10^3/uL (0.0-0.2); BASO % 1.2 % (0.0-1.0); EOS # 0.3 10^3/uL (0.0-0.5); EOS % 4.5 % (0.0-3.0); HEMATOCRIT 41.1 % (36.0-47.0); LYMPH # 2.3 10^3/uL (1.5-5.0); LYMPH % 40.1 % (24.0-44.0); MEAN CORPUSCULAR HEMOGLOBIN 31.6 pg (27.0-33.0); MEAN CORPUSCULAR HGB CONC 34.1 g/dl (32.0-36.5); MEAN CORPUSCULAR VOLUME 92.8 fl (80.0-96.0); MONO # 0.5 10^3/uL (0.0-0.8); MONO % 9.3 % (2.0-8.0); NEUTROPHILS # 2.6 10^3/uL (1.5-8.5); NEUTROPHILS % 44.4 % (36.0-66.0); PLATELET COUNT, AUTOMATED 242 10^3/uL (150-450); RED BLOOD COUNT 4.43 10^6/uL (4.00-5.40); WHITE BLOOD COUNT 5.8 10^3/uL (4.0-10.0)
[2022-06-21 17:56] LABS: APPEARANCE, URINE HAZY (CLEAR); BACTERIA, URINE AUTO NEGATIVE (NEGATIVE); BILIRUBIN, URINE AUTO NEGATIVE (NEGATIVE); BLOOD, URINE BLOOD 1+ (NEGATIVE); COLOR, URINE YELLOW (YELLOW); GLUCOSE, URINE (UA) AUTO NEGATIVE (NEGATIVE); KETONE, URINE AUTO NEGATIVE (NEGATIVE); LEUKOCYTE ESTERASE, URINE AUTO 3+ (NEGATIVE); MUCUS, URINE SMALL (NEGATIVE); NITRITE, URINE AUTO NEGATIVE (NEGATIVE); PROTEIN, URINE AUTO NEGATIVE (NEGATIVE); RBC, URINE AUTO 2 /HPF (0-3); SPECIFIC GRAVITY URINE AUTO 1.013 (1.002-1.035); SQUAMOUS EPITHELIAL CELL UR AU 2 /HPF (0-6); UROBILINOGEN, URINE AUTO 0.2 mg/dL (0.0-2.0); WBC, URINE AUTO 26 /HPF (0-3)
[2022-06-21 18:24] LABS: ALBUMIN 3.4 G/DL (3.2-5.2); ALKALINE PHOSPHATASE 92 U/L (46-116); ALT/SGPT 44 U/L (7.0-40); AST/SGOT 15 U/L (<34); BILIRUBIN,TOTAL 0.6 MG/DL (0.3-1.2); BLOOD UREA NITROGEN 16 MG/DL (9-23); CALCIUM LEVEL 8.7 MG/DL (8.3-10.6); CARBON DIOXIDE LEVEL 33 MMOL/L (20-31); CHLORIDE LEVEL 103 MMOL/L (98-107); CHOLESTEROL LEVEL 273 MG/DL (<200); CHOLESTEROL RISK RATIO 6.01 (<5); GLOMERULAR FILTRATION RATE > 60.0 (>39); GLUCOSE, FASTING 156 MG/DL (74-106); HDL CHOLESTEROL 45.4 MG/DL (>40); LDL CHOLESTEROL 189.4 MG/DL (<100); NON-HDL-C 227.6 MG/DL; POTASSIUM SERUM 3.7 MMOL/L (3.5-5.1); SODIUM LEVEL 140 MMOL/L (136-145); TOTAL PROTEIN 6.4 G/DL (5.7-8.2); TRIGLYCERIDES LEVEL 191 MG/DL (<150)
[2022-06-21 18:26] LABS: FREE T4 0.94 NG/DL (0.89-1.76); THYROID STIMULATING HORMONE 2.036 uIU/ML (0.55-4.78)
[2022-06-21 19:00] LABS: HEMOGLOBIN A1c 6.8 % (4.0-6.0)
== END ==
LOC: M SFHCCAPE 10:59
PROVIDERS: ATTEND Physician Assistant
DX: R73.09 Other abnormal glucose (principal); E03.9 Hypothyroidism, unspecified; I10 Essential (primary) hypertension

== ENCOUNTER → 2023-08-27 | Outpatient (REF) | payer MEDICARE, BC ==
[2023-08-27 17:41] LABS: BASO % 0.7 % (0.0-1.0); EOS # 0.2 10^3/uL (0.0-0.5); EOS % 3.4 % (0.0-3.0); HEMATOCRIT 40.2 % (36.0-47.0); HEMOGLOBIN 14.3 g/dl (12.0-15.5); LYMPH # 2.5 10^3/uL (1.5-5.0); LYMPH % 41.2 % (24.0-44.0); MEAN CORPUSCULAR HEMOGLOBIN 32.4 pg (27.0-33.0); MEAN CORPUSCULAR HGB CONC 35.6 g/dl (32.0-36.5); MEAN CORPUSCULAR VOLUME 91.2 fl (80.0-96.0); MONO # 0.6 10^3/uL (0.0-0.8); NEUTROPHILS # 2.7 10^3/uL (1.5-8.5); NEUTROPHILS % 44.4 % (36.0-66.0); PLATELET COUNT, AUTOMATED 253 10^3/uL (150-450); RED BLOOD COUNT 4.41 10^6/uL (4.00-5.40); WHITE BLOOD COUNT 6.1 10^3/uL (4.0-10.0)
[2023-08-27 17:47] LABS: FREE T4 1.15 NG/DL (0.89-1.76); THYROID STIMULATING HORMONE 2.648 uIU/ML (0.55-4.78)
[2023-08-27 17:49] LABS: ALBUMIN 3.5 G/DL (3.2-5.2); ALKALINE PHOSPHATASE 87 U/L (46-116); ALT/SGPT 39 U/L (7.0-40); AST/SGOT 24 U/L (<34); BILIRUBIN,TOTAL 0.6 MG/DL (0.3-1.2); BLOOD UREA NITROGEN 16 MG/DL (9-23); CALCIUM LEVEL 9.1 MG/DL (8.3-10.6); CARBON DIOXIDE LEVEL 30 MMOL/L (20-31); CHLORIDE LEVEL 106 MMOL/L (98-107); CHOLESTEROL LEVEL 269 MG/DL (<200); CREATININE FOR GFR 0.68 MG/DL (0.55-1.30); GLOMERULAR FILTRATION RATE > 60.0 (>39); GLUCOSE, FASTING 131 MG/DL (74-106); HDL CHOLESTEROL 50.7 MG/DL (>40); LDL CHOLESTEROL 166.3 MG/DL (<100); NON-HDL-C 218.3 MG/DL; POTASSIUM SERUM 3.4 MMOL/L (3.5-5.1); SODIUM LEVEL 142 MMOL/L (136-145); TOTAL PROTEIN 6.4 G/DL (5.7-8.2); TRIGLYCERIDES LEVEL 260 MG/DL (<150)
[2023-08-27 17:50] LABS: TOTAL 25(OH) VITAMIN D 34.7 NG/ML (20.0-100.0)
[2023-08-27 18:17] LABS: HEMOGLOBIN A1c 6.4 % (4.0-6.0)
== END ==
LOC: M SFHCCAPE 08:51
PROVIDERS: ATTEND Physician Assistant Medical
DX: E11.9 Type 2 diabetes mellitus without complications (principal); M85.80 Other specified disorders of bone density and structure, unspecified site; E03.9 Hypothyroidism, unspecified; G31.84 Mild cognitive impairment of uncertain or unknown etiology

== ENCOUNTER → 2024-03-04 | Outpatient (REF) | payer MEDICARE, BC ==
[2024-03-04 18:19] LABS: BASO # 0.1 10^3/uL (0.0-0.2); BASO % 0.8 % (0.0-1.0); EOS # 0.3 10^3/uL (0.0-0.5); EOS % 4.8 % (0.0-3.0); HEMATOCRIT 39.6 % (36.0-47.0); HEMOGLOBIN 13.8 g/dl (12.0-15.5); LYMPH # 2.3 10^3/uL (1.5-5.0); LYMPH % 37.7 % (24.0-44.0); MEAN CORPUSCULAR HGB CONC 34.8 g/dl (32.0-36.5); MEAN CORPUSCULAR VOLUME 91.9 fl (80.0-96.0); MONO # 0.5 10^3/uL (0.0-0.8); MONO % 8.7 % (2.0-8.0); NEUTROPHILS # 2.9 10^3/uL (1.5-8.5); NEUTROPHILS % 47.7 % (36.0-66.0); PLATELET COUNT, AUTOMATED 235 10^3/uL (150-450); RED BLOOD COUNT 4.31 10^6/uL (4.00-5.40); WHITE BLOOD COUNT 6.1 10^3/uL (4.0-10.0)
[2024-03-04 18:52] LABS: ALBUMIN 3.2 G/DL (3.2-5.2); ALKALINE PHOSPHATASE 94 U/L (35-104); ALT/SGPT 41 U/L (7.0-40); AST/SGOT 25 U/L (<34); BILIRUBIN,TOTAL 0.8 MG/DL (0.3-1.2); BLOOD UREA NITROGEN 23 MG/DL (9-23); CALCIUM LEVEL 9.3 MG/DL (8.3-10.6); CARBON DIOXIDE LEVEL 29 MMOL/L (20-31); CHLORIDE LEVEL 104 MMOL/L (98-107); CHOLESTEROL LEVEL 299 MG/DL (<200); CHOLESTEROL RISK RATIO 6.67 (<5); CREATININE FOR GFR 0.75 MG/DL (0.55-1.30); FREE T4 1.01 NG/DL (0.89-1.76); GLOMERULAR FILTRATION RATE > 60.0 (>32); GLUCOSE, FASTING 153 MG/DL (74-106); HDL CHOLESTEROL 44.8 MG/DL (>40); LDL CHOLESTEROL 204.4 MG/DL (<100); NON-HDL-C 254.2 MG/DL; POTASSIUM SERUM 3.7 MMOL/L (3.5-5.1); SODIUM LEVEL 142 MMOL/L (136-145); THYROID STIMULATING HORMONE 3.824 uIU/ML (0.55-4.78); TOTAL PROTEIN 6.7 G/DL (5.7-8.2); TRIGLYCERIDES LEVEL 249 MG/DL (<150)
[2024-03-04 19:17] LABS: HEMOGLOBIN A1c 6.8 % (4.0-6.0)
== END ==
LOC: M SFHCCAPE 09:35
PROVIDERS: ATTEND Physician Assistant Medical
DX: I10 Essential (primary) hypertension (principal); E03.9 Hypothyroidism, unspecified; E11.9 Type 2 diabetes mellitus without complications; E78.2 Mixed hyperlipidemia; F32.9 Major depressive disorder, single episode, unspecified; R41.3 Other amnesia

== ENCOUNTER 2024-04-09 00:54 | Inpatient (IN) | payer MEDICARE, BC ==
[~2024-04-09] VITALS: Ht 162.6 cm; Wt 75.8 kg
[2024-04-09 01:37] LABS: BASO % 0.6 % (0.0-1.0); EOS # 0.3 10^3/uL (0.0-0.5); EOS % 3.7 % (0.0-3.0); HEMATOCRIT 40.8 % (36.0-47.0); HEMOGLOBIN 14.4 g/dl (12.0-15.5); LYMPH # 2.5 10^3/uL (1.5-5.0); LYMPH % 36.2 % (24.0-44.0); MEAN CORPUSCULAR HEMOGLOBIN 31.8 pg (27.0-33.0); MEAN CORPUSCULAR HGB CONC 35.3 g/dl (32.0-36.5); MEAN CORPUSCULAR VOLUME 90.1 fl (80.0-96.0); MONO # 0.6 10^3/uL (0.0-0.8); MONO % 9.4 % (2.0-8.0); NEUTROPHILS # 3.4 10^3/uL (1.5-8.5); NEUTROPHILS % 49.7 % (36.0-66.0); PLATELET COUNT, AUTOMATED 277 10^3/uL (150-450); RED BLOOD COUNT 4.53 10^6/uL (4.00-5.40); WHITE BLOOD COUNT 6.8 10^3/uL (4.0-10.0)
[2024-04-09] MEDS ORDERED: ISOVUE-370 76% 100ML VIAL As Ordered ONE (01:38)
[2024-04-09 01:52] LABS: INR 0.97; PARTIAL THROMBOPLASTIN TIME 28.6 SECONDS (24.8-34.2); PROTHROMBIN TIME 13.2 SECONDS (12.5-14.5)
[2024-04-09 01:53] LABS: CPK CREATINE PHOSPHOKINASE 170 U/L (34-145)
[2024-04-09 01:54] LABS: ALBUMIN 3.5 G/DL (3.2-5.2); ALKALINE PHOSPHATASE 103 U/L (35-104); ALT/SGPT 39 U/L (7.0-40); AST/SGOT 24 U/L (<34); BILIRUBIN,TOTAL 0.9 MG/DL (0.3-1.2); BLOOD UREA NITROGEN 14 MG/DL (9-23); CALCIUM LEVEL 9.1 MG/DL (8.3-10.6); CARBON DIOXIDE LEVEL 28 MMOL/L (20-31); CHLORIDE LEVEL 105 MMOL/L (98-107); CK-MB VALUE MASS 2.4 NG/ML (<3.6); CREATININE FOR GFR 0.74 MG/DL (0.55-1.30); GLOMERULAR FILTRATION RATE > 60.0 (>32); GLUCOSE, FASTING 161 MG/DL (74-106); MB/CK RELATIVE INDEX 1.41 (< OR =4); POTASSIUM SERUM 3.1 MMOL/L (3.5-5.1); SODIUM LEVEL 143 MMOL/L (136-145); TOTAL PROTEIN 7.1 G/DL (5.7-8.2)
[2024-04-09] MEDS: NS (Normal Saline) 0.9% 1,000 ML IV ONE (01:58)
[2024-04-09 02:00] VITALS: BP 186/86; O2SAT 94
[2024-04-09 02:15] VITALS: BP 153/83; O2SAT 95
[2024-04-09] MEDS: KCL 10MEQ/100ML SWI (KRUN) 10 MEQ in IV 1 EA IV ONE ×2 (02:33→03:53)
[2024-04-09 02:53] LABS: CK-MB VALUE MASS 2.2 NG/ML (<3.6)
[2024-04-09 02:58] LABS: MB/CK RELATIVE INDEX 1.4 (< OR =4)
[2024-04-09] MEDS ORDERED: ACETAMINOPHEN 325 MG TAB PO PRN (05:30)
[2024-04-09] MEDS: ASPIRIN 81MG CHEW TABLET PO ONE (05:59)
[2024-04-09] MEDS ORDERED: FLUO1OPD OU (07:02)
[2024-04-09] MEDS ORDERED: LEVO50TA5 PO (07:02)
[2024-04-09] MEDS ORDERED: DORZ2SOL5 OU (07:02)
[2024-04-09] MEDS ORDERED: RHOP0.02 OU (07:02)
[2024-04-09] MEDS ORDERED: LISI20TA37 PO (07:02)
[2024-04-09] MEDS ORDERED: AMIT75TA67 PO (07:02)
[2024-04-09] MEDS ORDERED: METF500T13 PO (07:02)
[2024-04-09] MEDS ORDERED: ICOS1CAP PO (07:02)
[2024-04-09] MEDS ORDERED: AMLO2.5T3 PO (07:02)
[2024-04-09] MEDS ORDERED: HOME MED LIST COMPLETE! XX SCH (07:05)
[2024-04-09 07:26] VITALS: BP 157/68; TEMP 96.1; O2SAT 95
[2024-04-09] MEDS: DOCUSATE SODIUM 100MG CAPSULE PO SCH (08:40)
[2024-04-09] MEDS: ATORVASTATIN 20 MG TAB PO SCH (08:40)
[2024-04-09] MEDS: CLOPIDOGREL 75 MG TAB PO SCH (08:40)
[2024-04-09] MEDS ORDERED: ASPIRIN 325 MG TAB PO SCH (09:00)
[2024-04-09] MEDS ORDERED: ENOXAPARIN 40MG/0.4ML SYRINGE (J1650 PER 10MG) SC SCH (09:00)
[2024-04-09 09:55] LABS: CHOLESTEROL LEVEL 317 MG/DL (<200); CHOLESTEROL RISK RATIO 7.02 (<5); HDL CHOLESTEROL 45.1 MG/DL (>40); LDL CHOLESTEROL 233.1 MG/DL (<100); NON-HDL-C 271.9 MG/DL; TRIGLYCERIDES LEVEL 194 MG/DL (<150)
[2024-04-09 11:30] VITALS: BP 157/74; TEMP 96.5; O2SAT 95
[2024-04-09 15:30] VITALS: BP 154/74; TEMP 97.6; O2SAT 95
[2024-04-09 18:05] LABS: KETONE, URINE AUTO RFX NEGATIVE (NEGATIVE); LEUKOCYTE ESTERASE UR AUTO RFX NEGATIVE (NEGATIVE); MUCUS, URINE RFX SMALL (NEGATIVE); NITRITE, URINE AUTO RFX NEGATIVE (NEGATIVE); RBC, URINE AUTO RFX 1 /HPF (0-3); SQUAM EPITHELIAL CELL UR AURFX 0 /HPF (0-6); WBC, URINE AUTO RFX 2 /HPF (0-3)
[2024-04-09] MEDS: FLUOROMETHOLONE 0.1% OPHTH SUSP 5ML BTL OD SCH (18:42)
[2024-04-09] MEDS ORDERED: PILL CUTTER 1 EACH XX ONE (19:19)
[2024-04-09 20:04] VITALS: BP 172/82; TEMP 97; O2SAT 92
[2024-04-09] MEDS: OMEPRAZOLE 20MG CAP PO SCH (21:00)
[2024-04-09] MEDS ORDERED: COSOPT OCUMETER PLUS 10ML (DORZOLAMIDE/TIMOLOL) OU SCH (21:00)
[2024-04-09] MEDS: LUMIGAN 0.01% OU SCH (22:08)
[2024-04-09] MEDS: EYE OU SCH (22:13)
[2024-04-09] MEDS: RHOPRESSA 0.02% OU SCH (22:13)
[2024-04-09] MEDS: AMITRIPTYLINE 25MG TABLET PO ONE (23:35)
[2024-04-10 03:58] VITALS: BP 158/74; TEMP 97.9; O2SAT 98
[2024-04-10 08:00] VITALS: BP 167/74; TEMP 97.1; O2SAT 92
[2024-04-10] MEDS: ENOXAPARIN 40MG/0.4ML SYRINGE (J1650 PER 10MG) SC SCH (08:11)
[2024-04-10] MEDS: ASPIRIN 81MG ENTERIC TABLET PO SCH (08:11)
[2024-04-10] MEDS: FLUOROMETHOLONE 0.1% OPHTH SUSP 5ML BTL OU SCH (08:12)
[2024-04-10] MEDS: COSOPT OCUMETER PLUS 10ML (DORZOLAMIDE/TIMOLOL) OU SCH (09:00)
[2024-04-10] MEDS ORDERED: ASPIRIN 325 MG TAB PO SCH (09:00)
[2024-04-10] MEDS: amLODIPine 5 MG TAB PO ONE (10:50)
[2024-04-10 11:47] LABS: BLOOD UREA NITROGEN 10 MG/DL (9-23); CARBON DIOXIDE LEVEL 25 MMOL/L (20-31); CHLORIDE LEVEL 111 MMOL/L (98-107); CREATININE FOR GFR 0.67 MG/DL (0.55-1.30); GLOMERULAR FILTRATION RATE > 60.0 (>32); GLUCOSE, FASTING 200 MG/DL (74-106); MAGNESIUM LEVEL 1.8 MG/DL (1.8-2.4); POTASSIUM SERUM 3.8 MMOL/L (3.5-5.1); SODIUM LEVEL 142 MMOL/L (136-145)
[2024-04-10 16:00] VITALS: BP 166/76; TEMP 97.6; O2SAT 92
[2024-04-10] MEDS ORDERED: UNRESOLVED PATIENT OWN MED ORDER XX SCH (21:00)
[2024-04-10] MEDS ORDERED: AMIT75TA67 PO (21:22)
[2024-04-10 22:00] VITALS: BP 161/74; TEMP 98.1; O2SAT 96
[2024-04-10] MEDS: POLYVINYL ALCOHOL OPHTH SOLN 15ML (LIQUITEARS) OU SCH (22:47)
[2024-04-10] MEDS: AMITRIPTYLINE 25MG TABLET PO SCH (23:01)
[2024-04-11] VITALS (7 sets, daily range): BP systolic 135–178; BP diastolic 65–92; TEMP 96.9–97.9; O2SAT 92–97
[2024-04-11] MEDS: METOPROLOL TART 25 MG TABLET PO SCH (17:18)
[2024-04-12 04:00] VITALS: BP 132/68; TEMP 97.5; O2SAT 95
[2024-04-12] MEDS ORDERED: ASPI81TAEC PO (08:19)
[2024-04-12] MEDS ORDERED: ATOR1TAB21 PO (08:19)
[2024-04-12] MEDS ORDERED: CLOP75TA2 PO (08:19)
[2024-04-12] MEDS ORDERED: TALK1KIT MC (08:20)
[2024-04-12 09:00] VITALS: BP 130/85
[2024-04-12 12:00] VITALS: BP 134/86; TEMP 97.3; O2SAT 95
== END 2024-04-12 13:00 | disposition home health service (06) | DRG 66 ==
LOC: M ED 00:54 → M ED INP 05:30 → M PCU 15:03 → M MSPAV 04-11 21:12
PROVIDERS: ADMIT Student in an Organized Health Care Education/Training Program; ATTEND General Practice
DX: I63.9 Cerebral infarction, unspecified (principal); E78.5 Hyperlipidemia, unspecified; E87.6 Hypokalemia; I10 Essential (primary) hypertension; E03.9 Hypothyroidism, unspecified; I16.0 Hypertensive urgency; H40.9 Unspecified glaucoma; M81.0 Age-related osteoporosis without current pathological fracture; F41.9 Anxiety disorder, unspecified; F32.A Depression, unspecified; I69.320 Aphasia following cerebral infarction; H11.151 Pinguecula, right eye; H15.102 Unspecified episcleritis, left eye; I67.1 Cerebral aneurysm, nonruptured; Z98.49 Cataract extraction status, unspecified eye; Z88.2 Allergy status to sulfonamides; Z91.048 Other nonmedicinal substance allergy status

== ENCOUNTER → 2025-03-02 | Outpatient (REF) | payer MEDICARE, BC ==
[~2025-03-02] MED LIST changes: +AMIT75TA67 PO; +AMLO2.5T3 PO; +ASPI81TAEC PO; +ATOR1TAB21 PO; +CLOP75TA2 PO; +DORZ2SOL5 OU; +FLUO1OPD OU; +ICOS1CAP PO; +LEVO50TA5 PO; +LISI20TA37 PO; +METF500T13 PO; +RHOP0.02 OU; +TALK1KIT MC
[2025-03-02 17:42] LABS: BASO # 0.1 10^3/uL (0.0-0.2); BASO % 1.1 % (0.0-1.0); EOS # 0.3 10^3/uL (0.0-0.5); EOS % 4.4 % (0.0-3.0); LYMPH # 2.6 10^3/uL (1.5-5.0); LYMPH % 41.9 % (24.0-44.0); MONO # 0.6 10^3/uL (0.0-0.8); MONO % 9.5 % (2.0-8.0); NEUTROPHILS # 2.7 10^3/uL (1.5-8.5); NEUTROPHILS % 42.8 % (36.0-66.0); PLATELET COUNT, AUTOMATED 278 10^3/uL (150-450)
[2025-03-02 17:46] LABS: ALT/SGPT 50.0 U/L (7.0-40); AST/SGOT 26.0 U/L (<34); CALCIUM LEVEL 8.8 MG/DL (8.3-10.6); CARBON DIOXIDE LEVEL 28.0 MMOL/L (20-31); CHLORIDE LEVEL 105.0 MMOL/L (98-107); CHOLESTEROL LEVEL 235.0 MG/DL (<200); CHOLESTEROL RISK RATIO 4.74 (<5); CREATININE FOR GFR 0.74 MG/DL (0.55-1.30); GLOMERULAR FILTRATION RATE 81.2 (>32); LDL CHOLESTEROL 142.3 MG/DL (<100); NON-HDL-C 185.5 MG/DL; POTASSIUM SERUM 3.8 MMOL/L (3.5-5.1); SODIUM LEVEL 141.0 MMOL/L (136-145); TRIGLYCERIDES LEVEL 216.0 MG/DL (<150)
[2025-03-02 17:47] LABS: FREE T4 1.17 NG/DL (0.89-1.76)
[2025-03-02 18:28] LABS: ESTIMATED AVERAGE GLUCOSE 148.0 MG/DL (60-110)
== END ==
LOC: M SFHCCAPE 09:17
PROVIDERS: ATTEND Physician Assistant Medical
DX: I63.9 Cerebral infarction, unspecified (principal); I10 Essential (primary) hypertension; E03.9 Hypothyroidism, unspecified; E11.9 Type 2 diabetes mellitus without complications; E78.2 Mixed hyperlipidemia